=== PATIENT | male | born 2000 | race Caucasian/White ===

== ENCOUNTER 2022-01-20 14:11 | Emergency (ER) | payer OTHER ==
--- NOTE | 2022-01-20 14:18 | ED Physician Documentation ---
PD HPI LOWER EXT INJURY - Stated complaint Stated Complaint: KNEE INJURY - History obtained from History obtained from: Patient, EMS - Additional information Additional information: 21-year-old gentleman with history of meniscus repair in [place] a couple of years ago. Playing basketball today and went for a lay up and collided with another player hyperflexing the right knee with severe initial pain and a pop. He was able to walk and bear weight after that and pain is now mild. No other injuries. Review of Systems Constitutional: reports: Reviewed and negative Eyes: reports: Reviewed and negative Ears: reports: Reviewed and negative Nose: reports: Reviewed and negative Throat: reports: Reviewed and negative PD PAST MEDICAL HISTORY - Allergies Allergies/Adverse Reactions: Allergies Allergy/AdvReac Type Severity Reaction Status Date / Time ibuprofen Allergy Anaphylaxis Verified 01/20/22 14:17 PD ED PE NORMAL - Vitals Vital signs reviewed: Yes - General General: Alert and oriented X 3, No acute distress - Neck Neck: Supple, no meningeal sign, No bony TTP - Extremities Extremities: Other (Right knee is without effusion. Mild lateral joint line tenderness. No deformity. ACL, PCL, LCL, MCL testing is intact and painless. Negative grind testing.) - Neuro Neuro: Alert and oriented X 3, Normal speech Results - Vitals Vitals: Vital Signs - 24 hr 01/20/22 14:18 Temperature 37.3 C Heart Rate 90 Respiratory 18 Rate Blood Pressure 140/90 H O2 Saturation 99 Oxygen O2 Source Room air - Rads (name of study) R knee XR Radiology: EMP read contemporaneously PD MEDICAL DECISION MAKING - ED course ED course: He was able to walk well without any immobilizer anything and only had mild pain with ambulation after evaluation here. Departure - Departure Disposition: 01 Home, Self Care Clinical Impression: Strain of right knee Qualifiers: Encounter type: initial encounter Qualified Code(s): S86.911A - Strain of unspecified muscle(s) and tendon(s) at lower leg level, right leg, initial encounter Condition: Good Record reviewed to determine appropriate education?: Yes Instructions: ED Sprain Knee Comments: [place] consider MRI if still having a lot of symptoms in a week, but at this point the injury seems mild and I expect recovery over that timeframe. Return for new or worsening symptoms. You can take ibuprofen per package instructions for pain. Discharge Date/Time: 01/20/22 15:09
[2022-01-20 14:21] VITALS: BP 140/90
--- NOTE | 2022-01-20 14:48 | XRAY Report ---
PROCEDURE: Knee 4 View RT INDICATIONS: knee injury TECHNIQUE: 4 views of the right knee(s) were acquired. COMPARISON: None. FINDINGS: Bones: No fractures or dislocations. No suspicious bony lesions. Soft tissues: No joint effusion. No suspicious soft tissue calcifications. IMPRESSION: No fracture. No osseous lesion. If there are persistent symptoms or continued clinical c oncern for pathology, then repeat plain film radiographs (7-10 days) or advanced imaging (CT, MR, bon e scan) should be considered for further evaluation. Reviewed by: Bernadine Fernández MD, PhD on 01/20/2022 2:47 PM PDT Approved by: Bernadine Fernández MD, PhD on 01/20/2022 2:47 PM PDT Station ID: [id number]
== END 2022-01-20 15:09 | disposition home or self-care (01) ==
LOC: EDSEX → ED 14:11
DX: S86.911A Strain of unspecified muscle(s) and tendon(s) at lower leg level, right leg, initial encounter (principal); W50.0XXA Accidental hit or strike by another person, initial encounter; Y93.67 Activity, basketball
CPT/HCPCS: 99282; 99283